=== PATIENT | female | born 1965 | race Caucasian/White ===

== ENCOUNTER 2017-07-16 08:09 | Day surgery (SDC) | payer BC, OTHER ==
[2017-07-16] MEDS ORDERED: PROPOFOL 20 ML ×3 (09:46→10:26)
[2017-07-16] MEDS ORDERED: LIDOCAINE 100 MG SYRINGE ×2 (09:47→10:26)
== END 2017-07-16 19:03 | disposition home or self-care (01) ==
LOC: GIL 08:09
DX: D12.5 Benign neoplasm of sigmoid colon (principal); K64.8 Other hemorrhoids; I10 Essential (primary) hypertension; Z86.73 Personal history of transient ischemic attack (TIA), and cerebral infarction without residual deficits
CPT/HCPCS: 45380; 88309